=== PATIENT | female | born 1995 | race Two or more races ===

== ENCOUNTER 2025-09-09 09:37 | Emergency (ER) | payer MEDICAID ==
[~2025-09-09] VITALS: Ht 154.9 cm; Wt 104.3 kg
[2025-09-09] MEDS ORDERED: IBUP-2314 PO (09:53)
[2025-09-09] MEDS ORDERED: MIRT-74 PO (09:53)
[2025-09-09] MEDS ORDERED: PREG300C PO (09:53)
[2025-09-09] MEDS ORDERED: DULO60CA45 PO (09:53)
[2025-09-09] MEDS ORDERED: BUSP30TA2 PO (09:53)
[2025-09-09] MEDS ORDERED: HYDROMORPHONE 1 MG/1 ML DISP.SYRIN ONE (10:12)
[2025-09-09] MEDS ORDERED: PROCHLORPERAZINE EDISYLATE 10 MG/2 ML VIAL ONE (10:12)
[2025-09-09] MEDS: HYDROMORPHONE 1 MG/1 ML DISP.SYRIN IV ONE (10:16)
[2025-09-09] MEDS: PROCHLORPERAZINE EDISYLATE 10 MG/2 ML VIAL IV ONE (10:16)
[2025-09-09] MEDS: IV NORMAL SALINE 1000 ML BAG IV ONE (10:16)
[2025-09-09 10:35] LABS: PLATELET COUNT (AUTO) 276 K/uL (179-408); RED BLOOD CELL COUNT(AUTO) 4.17 MIL/uL (3.63-4.92); RED CELL DISTRIBUTION WIDTH 14.7 % (12.3-17.7); WHITE BLOOD COUNT (AUTO) 8.2 K/uL (3.8-11.8)
[2025-09-09 10:42] LABS: CREATININE 0.6 mg/dL (0.6-1.3); SODIUM SERUM 139.0 mmol/L (136-145); UREA NITROGEN, BLOOD 11.0 mg/dL (7-18)
[2025-09-09 10:47] LABS: ASPARTATE AMINOTRANSFERASE 17.0 U/L (15-37); TOTAL PROTEIN, SERUM 7.8 g/dL (6.4-8.2)
[2025-09-09 11:12] VITALS: BP 141/71
[2025-09-09 11:49] LABS: *BILIRUBIN,URIN 1+ (NEGATIVE); *BLOOD, URINE NEGATIVE (NEGATIVE); *CLARITY,URINE CLEAR (CLEAR); *COLOR,URINE YELLOW (YELLOW); *KETONES,URINE 1+ (NEGATIVE); *PROTEIN,URINE 1+ (NEGATIVE); *UROBILINOGEN,URINE 0.2 E.U./dl (NORMAL); LEUKOCYTE ESTERASE ,URINE NEGATIVE (NEGATIVE); NITRITE, URINE NEGATIVE (NEGATIVE); UGLUCOSE NEGATIVE (NEGATIVE)
[2025-09-09 12:21] LABS: SQUAMOUS EPITHELIAL CELL,UR FEW /HPF (NONE SEEN)
[2025-09-09] MEDS ORDERED: FLAS1KIT2 TP (12:23)
[2025-09-09] MEDS ORDERED: FLAS1EAC2 TP (12:23)
[2025-09-09] MEDS ORDERED: OXYC-128 PO (12:23)
[2025-09-09] MEDS ORDERED: PROC-11 PO (12:23)
[2025-09-09 12:33] VITALS: BP 131/65; O2SAT 98
== END 2025-09-09 12:33 | disposition home or self-care (01) ==
LOC: ER 09:37
DX: A08.4 Viral intestinal infection, unspecified (principal); R00.0 Tachycardia, unspecified; E66.01 Morbid (severe) obesity due to excess calories; Z68.41 Body mass index [BMI] 40.0-44.9, adult; E88.810 Metabolic syndrome; Z79.899 Other long term (current) drug therapy; Z88.8 Allergy status to other drugs, medicaments and biological substances
CPT/HCPCS: 36415; 85025; A4606; A4663; J0780; J1171; J7040